=== PATIENT | female | born 1950 | race Two or more races ===

== ENCOUNTER 2017-02-04 19:57 | Inpatient (IN) | payer MEDICAID, OTHER ==
[~2017-02-04] VITALS: Ht 154.9 cm; Wt 97.5 kg
[2017-02-04] MEDS ORDERED: METFORMIN HCL1000 M1 ORAL (20:12)
[2017-02-04] MEDS ORDERED: ASPIR 8181 MG ORAL (20:12)
[2017-02-04] MEDS ORDERED: SINGULAIR10 MG ORAL (20:12)
[2017-02-04] MEDS ORDERED: LISINOPRIL5 MG ORAL (20:12)
[2017-02-04] MEDS ORDERED: LEVOTHYROXINE75 MCG ORAL (20:12)
[2017-02-04] MEDS ORDERED: Sodium Chloride 500ML 500 ML IV ONE (21:17)
[2017-02-04 21:30] VITALS: BP 151/72
[2017-02-04 21:39] LABS: BASOPHILS % (AUTO) 2.3 % (0.0-2.0); HEMATOCRIT 41.7 % (37.0-47.0); HEMOGLOBIN 11.6 G/DL (12.0-16.0); LYMPHOCYTES % (AUTO) 45.3 % (20.0-45.0); MEAN CORPUSCULAR VOLUME 80 FL (80-99); MONOCYTES % (AUTO) 7.1 % (1.0-10.0); NEUTROPHILS % (AUTO) 40.3 % (45.0-75.0); PLATELET COUNT 203 K/UL (150-450); RED CELL DISTRIBUTION WIDTH 14.7 % (11.6-14.8); WHITE BLOOD COUNT 6.3 K/UL (4.8-10.8)
[2017-02-04 21:59] LABS: ALANINE AMINOTRANSFERASE 18 U/L (12-78); ALBUMIN 3.7 G/DL (3.4-5.0); ALBUMIN/GLOBULIN RATIO 0.9 (1.0-2.7); ALKALINE PHOSPHATASE 56 U/L (46-116); ANION GAP 6 mmol/L (5-15); ASPARTATE AMINO TRANSFERASE 38 U/L (15-37); BILIRUBIN,TOTAL 0.4 MG/DL (0.2-1.0); BLOOD UREA NITROGEN 24 mg/dL (7-18); CALCIUM 7.9 MG/DL (8.5-10.1); CARBON DIOXIDE 27 MMOL/L (21-32); CHLORIDE 107 MMOL/L (98-107); CREATINE KINASE 142 U/L (26-308); CREATININE 0.7 MG/DL (0.55-1.30); SODIUM 139 MMOL/L (136-145)
[2017-02-04 22:05] LABS: POTASSIUM 4.9 MMOL/L (3.5-5.1)
--- NOTE | 2017-02-04 22:36 | Emergency Room Report ---
History of Present Illness General Chief Complaint: Generalized Weakness Source: Patient (MATTHEW MORROW M.D.) Present Illness HPI 66-year-old female presents to ED for evaluation. States the last 3 days she's been having weakness on the left side of her body feels numb in sensation to her tongue into her face. Feels numbing sensation in her left upper extremity. Denies any slurred speech or facial droop. Denies any chest pain or shortness of breath. No other aggravating or relieving factors. Denies any other associated symptoms (MATTHEW MORROW M.D.) Allergies: Coded Allergies: PENICILLINS (Verified Allergy, Unknown, 02/04/17) Uncoded Allergies: IV CONTRAST (Allergy, Unknown, 02/04/17) Patient History Past Medical History: DM, HTN Past Surgical History: none Pertinent Family History: none Social History: Denies: smoking, alcohol use, drug use Last Menstrual Period: n/a Now: No Immunizations: UTD Reviewed Nursing Documentation: PMH: Agreed, PSxH: Agreed (MATTHEW MORRWO M.D.) Nursing Documentation-PMH Past Medical History: No History, Except For Hx Cardiac Problems: Yes - arrhythmia, high cholestrol, hypothyroidism, anemia Hx Hypertension: Yes Hx Diabetes: Yes (MATTHEW MORROW M.D.) Review of Systems All Other Systems: negative except mentioned in HPI (MATTHEW MORROW M.D.) Physical Exam Vital Signs Date Time Temp Pulse Resp B/P (MAP) Pulse Ox O2 Delivery O2 Flow Rate FiO2 02/04/17 20:05 97.7 92 16 147/74 97 Room Air Sp02 EP Interpretation: reviewed, normal General Appearance: no apparent distress, alert, GCS 15, non-toxic Head: normocephalic, atraumatic Eyes: bilateral eye normal inspection, bilateral eye PERRL ENT: hearing grossly normal, normal pharynx, no angioedema, normal voice Neck: full range of motion, supple/symm/no masses Respiratory: chest non-tender, lungs clear, normal breath sounds, speaking full sentences Cardiovascular #1: regular rate, rhythm, no edema Cardiovascular #2: 2+ carotid (R), 2+ carotid (L), 2+ radial (R), 2+ radial (L) , 2+ dorsalis pedis (R), 2+ dorsalis pedis (L) Gastrointestinal: normal bowel sounds, non tender, soft, non-distended, no guarding, no rebound Rectal: deferred Genitourinary: normal inspection, no CVA tenderness Musculoskeletal: back normal, gait/station normal, normal range of motion, non- tender Neurologic: alert, oriented x3, responsive, an employee sponsor or advocate and III-XII nml as tested, motor strength/tone normal, sensory intact, speech normal Psychiatric: judgement/insight normal, memory normal, mood/affect normal, no suicidal/homicidal ideation Reflexes: 3+ bicep (R), 3+ bicep (L), 3+ tricep (R), 3+ tricep (L), 3+ knee (R) , 3+ knee (L) Skin: normal color, no rash, warm/dry, well hydrated Lymphatic: no adenopathy (MATTHEW MORROW M.D.) Medical Decision Making Labs Test 02/04/17 21:26 White Blood Count 6.3 K/UL (4.8-10.8) Red Blood Count 5.20 M/UL (4.20-5.40) Hemoglobin 11.6 G/DL (12.0-16.0) Hematocrit 41.7 % (37.0-47.0) Mean Corpuscular Volume 80 FL (80-99) Mean Corpuscular Hemoglobin 22.2 PG (27.0-31.0) Mean Corpuscular Hemoglobin Concent 27.7 G/DL (32.0-36.0) Red Cell Distribution Width 14.7 % (11.6-14.8) Platelet Count 203 K/UL (150-450) Mean Platelet Volume 12.3 FL (6.5-10.1) Neutrophils (%) (Auto) 40.3 % (45.0-75.0) Lymphocytes (%) (Auto) 45.3 % (20.0-45.0) Monocytes (%) (Auto) 7.1 % (1.0-10.0) Eosinophils (%) (Auto) 5.0 % (0.0-3.0) Basophils (%) (Auto) 2.3 % (0.0-2.0) Sodium Level 139 MMOL/L (136-145) Potassium Level 4.9 MMOL/L (3.5-5.1) Chloride Level 107 MMOL/L (98-107) Carbon Dioxide Level 27 MMOL/L (21-32) Anion Gap 6 mmol/L (5-15) Blood Urea Nitrogen 24 mg/dL (7-18) Creatinine 0.7 MG/DL (0.55-1.30) Estimat Glomerular Filtration Rate > 60 mL/min (>60) Glucose Level 145 MG/DL (74-106) Calcium Level 7.9 MG/DL (8.5-10.1) Total Bilirubin 0.4 MG/DL (0.2-1.0) Aspartate Amino Transf (AST/SGOT) 38 U/L (15-37) Alanine Aminotransferase (ALT/SGPT) 18 U/L (12-78) Alkaline Phosphatase 56 U/L (46-116) Total Creatine Kinase 142 U/L (26-308) Troponin I 0.013 ng/mL (0.000-0.056) Total Protein 7.7 G/DL (6.4-8.2) Albumin 3.7 G/DL (3.4-5.0) Globulin 4.0 g/dL Albumin/Globulin Ratio 0.9 (1.0-2.7) (MATTHEW MORROW M.D.) ER Course I received signout. 66-year-old female with 3 days of unsteady gait, paresthesias, CT head is negative, work up is negative, patient was approved to be admitted to observation unit. [facility] EKG Diagnostic Results Rate: normal Rhythm: NSR ST Segments: other - twave inversions in lateral leads (MATTHEW MORROW M.D.) Rhythm Strip Diag. Results EP Interpretation: yes Rhythm: NSR, no PVC's, no ectopy (MATTHEW MORROW M.D.) CT/MRI/US Diagnostic Results CT/MRI/US Diagnostic Results #1: Imaging Test Ordered: CT Head CT/MRI/US Diagnostic Results #2: Imaging Test Ordered: CT C spine (MATTHEW MORROW M.D.) Last Vital Signs Date Time Temp Pulse Resp B/P (MAP) Pulse Ox O2 Delivery O2 Flow Rate FiO2 02/04/17 21:30 97.7 74 20 151/72 98 Room Air (MATTHEW MORROW M.D.) Referrals: [facility] (PCP) MATTHEW MORROW M.D. Feb 04, 2017 22:36 Donya Ferris M.D. Feb 05, 2017 01:27
[2017-02-04 22:42] LABS: CKMB 0.7 NG/ML (0.0-3.6)
[2017-02-05 01:06] VITALS: BP 117/53
[2017-02-05 01:37] LABS: APPEARANCE,URINE CLEAR; BILIRUBIN, URINE NEGATIVE (NEGATIVE); COLOR,URINE PALE YELLOW; GLUCOSE, URINE (UA) NEGATIVE (NEGATIVE); KETONES,URINE NEGATIVE (NEGATIVE); NITRITE,URINE NEGATIVE (NEGATIVE); PH,URINE 7 (4.5-8.0); PROTEIN,URINE NEGATIVE (NEGATIVE); UROBILINOGEN,URINE NORMAL MG/DL (0.0-1.0)
[2017-02-05 01:39] LABS: LEUKOCYTE ESTERASE ,URINE NEGATIVE (NEGATIVE)
[2017-02-05 07:19] VITALS: BP 134/79
[2017-02-05 07:23] LABS: EOSINOPHILS % (AUTO) 4.7 % (0.0-3.0); HEMATOCRIT 35.2 % (37.0-47.0); HEMOGLOBIN 10.4 G/DL (12.0-16.0); LYMPHOCYTES % (AUTO) 37.8 % (20.0-45.0); MEAN CORPUSCULAR VOLUME 80 FL (80-99); MONOCYTES % (AUTO) 9.4 % (1.0-10.0); NEUTROPHILS % (AUTO) 46.1 % (45.0-75.0); PLATELET COUNT 161 K/UL (150-450); RED BLOOD COUNT 4.41 M/UL (4.20-5.40); RED CELL DISTRIBUTION WIDTH 14.9 % (11.6-14.8); WHITE BLOOD COUNT 4.9 K/UL (4.8-10.8)
[2017-02-05 07:48] LABS: ALANINE AMINOTRANSFERASE 17 U/L (12-78); ALKALINE PHOSPHATASE 47 U/L (46-116); ANION GAP 4 mmol/L (5-15); ASPARTATE AMINO TRANSFERASE 13 U/L (15-37); BILIRUBIN,TOTAL 0.2 MG/DL (0.2-1.0); BLOOD UREA NITROGEN 27 mg/dL (7-18); CARBON DIOXIDE 26 MMOL/L (21-32); CHLORIDE 112 MMOL/L (98-107); CREATININE 0.7 MG/DL (0.55-1.30); POTASSIUM 4.3 MMOL/L (3.5-5.1); SODIUM 142 MMOL/L (136-145)
--- NOTE | 2017-02-05 08:21 | History & Physical ---
History and Physical History & Physicial dict MRI neuro SARABJIT BANKS Feb 05, 2017 08:21
[2017-02-05] MEDS ORDERED: Lisinopril 10mg tab ORAL SCH (09:00)
[2017-02-05] MEDS ORDERED: Aspirin Baby 81mg ORAL SCH (09:00)
[2017-02-05] MEDS ORDERED: Montelukast 10mg tablet ORAL SCH (09:00)
--- NOTE | 2017-02-05 09:17 | Diagnostic Imaging Report ---
Indication: Neck pain. Technique: Continuous helical imaging of the cervical spine was obtained transaxially from the skull base to the upper thoracic spine. 2-D coronal and sagittal reformatted images were obtained. Automatic Exposure Control was utilized. Total Dose length Product (DLP): 381.[address] Dose Index Volume (CTDIvol): 17.77 mGy Comparison: None Findings: There is no evidence of an acute fracture or malalignment. Atlantoaxial alignment appears normal. Height and configuration of the vertebral bodies and intervertebral discs are largely within normal limits. Only exception at C5-6 which shows mild narrowing of the disc and minimal endplate spurring. Uncovertebral joints and facets are unremarkable. There is no soft tissue swelling. Impression: Negative for acute injury. Mild degenerative disc disease at C5-6. The CT scanner at [facility] is accredited by the [employer] and the scans are performed using dose optimization techniques as appropriate to a performed exam including Automatic Exposure control.
--- NOTE | 2017-02-05 09:52 | Diagnostic Imaging Report ---
Indication: Headache Technique: Contiguous 5 mm thick transaxial imaging of the head obtained in a Siemens Sensation [address] scanner. Soft tissue and bone windows generated. Automatic Exposure Control was utilized. Total Dose length Product (DLP): 1291.[address] Dose Index Volume (CTDIvol): 70.38 mGy Comparison: none Findings: There is mild prominence of the ventricles, basal cisterns, and cerebral sulci consistent with atrophy. Mild, nonspecific, white matter hypoattenuation is noted throughout the brain consistent with chronic small vessel disease. There is no midline shift, edema, acute hemorrhage, mass effect, or abnormal extra-axial fluid collections. Bones and extra osseous soft tissues are unremarkable. Mucosal thickening noted within some of the paranasal sinuses. Impression: No acute intracranial bleed, mass effect or edema. Mild atrophy of the brain. Nonspecific white matter hypoattenuation probably due to chronic small vessel disease. Sinusitis [facility] has communicated the preliminary results to the Emergency Department. Their findings are largely concordant with this report. The CT scanner at [facility] is accredited by the [employer] and the scans are performed using dose optimization techniques as appropriate to a performed exam including Automatic Exposure control.
--- NOTE | 2017-02-05 10:00 | Diagnostic Imaging Report ---
Indication: Left-sided weakness Technique: The head was imaged in a 1.5 Negin magnet. Sequences obtained include sagittal and axial T1 FLAIR, axial T2 fast spin echo with fat saturation, axial T2 FLAIR, diffusion and ADC map. Comparison: None Findings: The size, contour, and configuration of the sulci, ventricles, and basal cisterns appear slightly prominent but normal for age. Moreau-white differentiation is normal. Mild susceptibility associated with calcification in the left basal ganglia region noted. There is no restricted diffusion. There is no mass effect, midline shift, edema, or hemorrhage. There are no abnormal extra-axial or intra-axial fluid collections. The corpus callosum is unremarkable. The brainstem and cerebellum are unremarkable. The sella is unremarkable. Bone marrow signal within the visualized osseous structures appears age appropriate and unremarkable otherwise. There is fluid signal within the sphenoid sinus and some mucosal thickening of the ethmoid sinus. Impression: No evidence of acute CVA, mass effect, edema or acute hemorrhage. Sinusitis
--- NOTE | 2017-02-05 11:18 | Diagnostic Imaging Report ---
Indication: Dyspnea Comparison: None A single view chest radiograph was obtained. Findings: Cardiomediastinal appearance is within normal limits for age. Pulmonary vascularity is appropriate. The diaphragmatic contour is smooth and costophrenic angles are sharp. No pleural effusions are identified. The bones are unremarkable. Impression: No acute findings
[2017-02-05] MEDS: metFORMIN 500mg tab ORAL SCH ×2 (11:35→18:09)
--- NOTE | 2017-02-05 15:00 | History and Physical Report ---
DATE OF ADMISSION: 02/04/2017 HISTORY OF PRESENT ILLNESS: This 66-year-old woman comes to the emergency department because of several days to weeks of left-sided weakness and numbness. She complains that her tongue and face feel numb and she has weakness on the left side. She states that she fell down several times. She has fluent speech, but claims that her speech is not normal. She has no history of seizure or stroke. She has no chest pain or shortness of breath. PAST MEDICAL HISTORY: Hypertension, hyperlipidemia, hypothyroidism, diabetes, arrhythmia, and anemia. SURGICAL HISTORY: Uterine carcinoma 30 years ago, resected. Lumbar spine surgery three years ago. SOCIAL HISTORY: She does not drink or smoke. Does not use drugs. ALLERGIES: Penicillin and IV contrast. REVIEW OF SYSTEMS: Otherwise unremarkable except for overweight condition and diffuse abdominal discomfort and nausea. Her weight is stable. PHYSICAL EXAMINATION: GENERAL: The patient is alert and responds appropriately. She is obese. VITAL SIGNS: Blood pressures somewhat elevated at times. HEENT: Head is normocephalic. NECK: Has no jugular vein distention. CHEST: Clear. CARDIAC: Rhythm is regular. ABDOMEN: Soft and nontender. EXTREMITIES: No clubbing, cyanosis, or edema. NEUROLOGIC: She is able to move all extremities. There may be slight weakness on the left side. There is no obvious numbness to light touch. Cranial nerves are intact. She is alert and oriented. LABORATORY AND DIAGNOSTIC DATA: Laboratory studies show mild anemia. The blood sugar is 145. Renal function is normal. Urinalysis is negative. CT brain is negative by report of the emergency room physician, although I have not seen the final radiologist's report. IMPRESSION: 1. Left-sided weakness and numbness, possible stroke. 2. Diabetes. 3. Hypertension. 4. Mild anemia. 5. Hypothyroidism. PLAN: The patient will be admitted. Neurology consultation and MRI will be again requested. Neville Marcial M.D. DR: CON JOB#: [id number] CC: Neville Marcial M.D.; Fax#: [phone]
[2017-02-05] MEDS ORDERED: Norco 5mg/325mg tab ORAL PRN (19:15)
[2017-02-05] MEDS ORDERED: TraZODone 50mg tab ORAL PRN (19:15)
[2017-02-05 20:00] VITALS: BP 151/82
[2017-02-05] MEDS ORDERED: Flu Vaccine Quadrivalent 0.5ml IM ONE (21:00)
[2017-02-06 00:45] VITALS: BP 148/74
[2017-02-06 04:52] VITALS: BP 136/66
--- NOTE | 2017-02-10 11:13 | Discharge Summary ---
Discharge Summary Hospital Course Date of Admission Feb 05, 2017 at 00:05 Date of Discharge Feb 06, 2017 at 08:54 Admitting Diagnosis dizziness, unsteady gait, numbness HPI Veena Marion is a 66 year old female who was admitted on Feb 05, 2017 at 00: 05 for Dizziness, Unsteady Gait, Numbness Hospital Course dc summary #[id number] Discharge Discharge Disposition Patient signed AMA Discharge Diagnoses: Discharge Instructions Discharge Instructions Special Instructions I have been assigned to complete a D/C Summary on this account. I was not involved in the patient management Marcella Ramirez NP ([place]) Feb 10, 2017 11:13
--- NOTE | 2017-02-10 19:00 | Discharge Summary 2 SIG ---
DATE OF ADMISSION: 02/05/2017 DATE OF SIGNINGS AGAINST MEDICAL ADVICE: 02/06/2017. REASON FOR ADMISSION: 66-year-old female with past medical history significant for hypertension, hyperlipidemia, hypothyroidism, diabetes, anemia, and arrhythmia, presented to emergency department with complaint of the weakness on the left side of her body and numbness in sensation to her tongue and face which lasted for three days. The patient denied slurred speech. Denied facial droop. No chest pain. No shortness of breath. CT of the head done in the emergency room revealed no evidence of acute intracranial pathology. EKG showed normal sinus rhythm with T-wave inversion in lateral leads. Troponin was negative. The patient with three days of unsteady gait, paresthesia was admitted for left-sided weakness and numbness, rule out stroke, diabetes, hypertension, mild anemia, and hypothyroidism. HOSPITAL COURSE: The patient was admitted. Neurology consultation was requested. The patient subsequently undergone CT of the C-spine, which was negative for acute injury, but showed mild degenerative disk disease at C5-C6. Chest x-ray revealed no evidence of acute cardiopulmonary pathology. Carotid duplex was essentially negative. Echocardiogram was stable. Brain MRI was subsequently done and revealed no evidence of acute CVA, mass effect, edema, or acute hemorrhage. TSH was within normal limits. Current dose of levothyroxine was continued. Hemoglobin A1c at goal -6.7. Management of blood sugar was continued with metformin. The patient was started on aspirin. The patient decided to go against medical advice stating that her symptoms nearly resolved. On physical examination with primary doctor, there was no obvious numbness to light touch. The patient was able to move all extremities and there was felt slight weakness on the left. However, the patient reported feeling better .She was informed that all her tests were negative. Patient decided to sign against medical advice before doctor can discharge her. The patient had mild anemia on admission, hemoglobin -11.6 and hematocrit- 41.7, next day- 10.4 and- 35.2 with IV hydration. No signs of bleeding. Urinalysis with no evidence of hematuria. The patient to follow up with the workup for anemia with the primary medical doctor. The risks and consequences of signing against medical advice were discussed with the patient , and the patient verbalized understanding. Nevertheless, she signed the AMA form and left. FINAL DIAGNOSES: 1. Left-sided weakness and numbness, resolved. 2. Diabetes. 3. Hypertension. 4. Hypothyroidism. 5. Mild anemia. Neville Marcial M.D. I have been assigned to dictate discharge summary on this account and I was not involved in the patient's management. Marcella SantoroBurke Rehabilitation HospitalLarry NDarinPDarin DR: BENJAMÍN JOB#: [id number] CC: PINKY
--- NOTE | 2017-02-11 13:12 | Diagnostic Imaging Report ---
APPROVED REPORT CPT Code: 28277 Vascular Symptoms Dizziness and Vertigo CAROTID (BILATERAL) - Imaging reveals no significant plaque within the right and left extracranial carotid arteries. The Doppler spectral flow analysis is within normal limits throughout the extracranial carotid arteries bilaterally. VERTEBRAL- The vertebral arteries are within normal limits.
--- NOTE | 2017-02-15 21:47 | Cardiology Report ---
APPROVED REPORT EXAM: Two-dimensional and M-mode echocardiogram with Doppler and color Doppler. INDICATION Congestive Heart Failure M-Mode DIMENSIONS IVSd1.5 (0.7-1.1cm)Left Atrium (MM)4.5 (1.6-4.0cm) LVDd5.8 (3.5-5.6cm)Aortic Root3.6 (2.0-3.7cm) PWd1.3 (0.7-1.1cm)Aortic Cusp Exc.1.7 (1.5-2.0cm) IVSs2.1 cm LVDs4.1 (2.5-4.0cm) PWs1.6 cm Normal left ventricular chamber size, systolic function and wall motion. Left ventricular ejection fraction estimated to be 60-65%. No evidence of left ventricular hypertrophy. No evidence of pericardial effusion. Mild left atrial dilated . Focal aortic valve sclerosis with adequate cusp excursion. Thickened mitral valve leaflets with normal excursion. Mitral annulus and aortic root calcification. Pulmonic valve not well visualized. Normal tricuspid valve structure. IVC at 2.3size with physiologic collapse. A color flow and spectral Doppler study was performed and revealed: Trace aortic regurgitation. Mild to moderate mitral regurgitation. Mitral inflow Mitral diastolic velocities suggest reduced left ventricular relaxation c/w mild LV diastolic dysfunction (Grade I ). mild tricuspid regurgitation. Tricuspid systolic velocities suggests peak right ventricular systolic pressure of 47 mmHg consistent with mild pulmonary hypertension. Mild Pulmonic regurgitation present.
--- NOTE | 2017-02-16 00:10 | Cardiology Report ---
APPROVED REPORT EKG Measurement Heart [id number] Normal sinus rhythm T wave abnormality, consider inferolateral ischemia Abnormal ECG
== END 2017-02-06 08:54 | disposition left against medical advice (07) | DRG 58 ==
LOC: EMR 20:50 → 2E 02-05 00:05 → EDBEDREQ 02-05 14:45 → 2E 02-05 16:15
DX: R20.2 Paresthesia of skin (principal); I10 Essential (primary) hypertension; E03.9 Hypothyroidism, unspecified; E11.9 Type 2 diabetes mellitus without complications; D64.9 Anemia, unspecified; E78.5 Hyperlipidemia, unspecified; R53.1 Weakness; R26.81 Unsteadiness on feet; Z23 Encounter for immunization; Z53.21 Procedure and treatment not carried out due to patient leaving prior to being seen by health care provider; Z85.42 Personal history of malignant neoplasm of other parts of uterus; Z79.84 Long term (current) use of oral hypoglycemic drugs
CPT/HCPCS: 36415; 70450; 70551; 71010; 72125; 80053; 81001; 82550; 82553; 82962; 83036; 84443; 84484; 85025; 90630; 93005; 93306; 93880; 99285

== ENCOUNTER 2019-01-28 09:46 | Inpatient (IN) | payer MEDICARE, MEDICAID ==
[2019-01-28] VITALS (8 sets, daily range): BP systolic 104–141; BP diastolic 50–86
[~2019-01-28] VITALS: Ht 162.6 cm; Wt 113.9 kg
[~2019-01-28 09:46] MED LIST: ASPIR 8181 MG ORAL; LEVOTHYROXINE75 MCG ORAL; LISINOPRIL5 MG ORAL; METFORMIN HCL1000 M1 ORAL; SINGULAIR10 MG ORAL
--- NOTE | 2019-01-28 09:59 | NUR ---
ED Nurse Note: Pt wheeled into ED in a wheelchair from home. Pt reports fever, chills, body aches, n/v for one week. Pt reports she came in due to feeling weak and dizzy. Pt has a hx of sleep apnea and reports using a CPAP at home. Pts blood sugar on arrival was 193. Pt confirms that she as a hx of diabetes. Pt in bed resting.
[2019-01-28] MEDS ORDERED: Sodium Chloride 3,400 ML IVLG ONE (10:15)
--- NOTE | 2019-01-28 10:16 | Emergency Room Report ---
History of Present Illness General Chief Complaint: Fever Source: Patient Present Illness HPI 68-year-old female with history of diabetes, hypertension, thyroid disorder presents with fever and cough for 3 days duration. She reports cough as productive, yellow sputum. She tried NyQuil last today with no improvement. Patient did not take any antipyretics prior to arrival. She did not get influenza vaccination this year Allergies: Coded Allergies: PENICILLINS (Verified Allergy, Unknown, 02/04/17) Uncoded Allergies: CONTRAST (Allergy, Unknown, 01/28/19) Nursing Documentation-[facility] Past Medical History: No History, Except For Hx Cardiac Problems: Yes Hx Hypertension: Yes Hx Asthma: Yes Hx Diabetes: Yes Hx Cancer: Yes - ovary ca 1982 Hx Gastrointestinal Problems: Yes - nausea Hx Neurological Problems: No Review of Systems Constitutional: Reports: fever; Denies: chills Respiratory: Reports: cough; Denies: shortness of breath Cardiovascular: Denies: chest pain, palpitations Gastrointestinal: Denies: diarrhea, vomiting Genitourinary: Denies: hematuria, pain Musculoskeletal: Denies: joint swelling Skin: Denies: rash, lesions Neurological: Denies: headache, dizziness Physical Exam Vital Signs Date Time Temp Pulse Resp B/P (MAP) Pulse Ox O2 Delivery O2 Flow Rate FiO2 01/28/19 09:49 102.4 120 26 163/79 (107) 94 Room Air Sp02 EP Interpretation: reviewed General Appearance: well appearing, no apparent distress, non-toxic Head: normocephalic, atraumatic Eyes: bilateral eye normal inspection ENT: hearing grossly normal, EOM grossly intact, moist mucus membranes Neck: supple Respiratory: lungs clear, normal breath sounds, no respiratory distress, speaking full sentences Cardiovascular #1: regular rate, rhythm, normal capillary refill Cardiovascular #2: 2+ radial (R), 2+ radial (L) Gastrointestinal: soft, non-distended Rectal: deferred Musculoskeletal: moves extm spontaneously, no lower extremity edema Neurologic: grossly normal Psychiatric: mood/affect normal Skin: warm/dry, normal turgor Medical Decision Making Diagnostic Impression: Primary Impression: Fever Additional Impressions: CAP (community acquired pneumonia) Pulmonary vascular congestion ER Course 68-year-old female presenting with fever and cough. Differential includes cough, pneumonia, viral infection, vascular congestion, acute myocardial infarction, sepsis, septic shock We will perform lab testing and chest x-ray to evaluate patient's fever Laboratory Tests Test 01/28/19 10:22 White Blood Count 17.1 K/UL (4.8-10.8) H Red Blood Count 5.68 M/UL (4.20-5.40) H Hemoglobin 13.2 G/DL (12.0-16.0) Hematocrit 44.0 % (37.0-47.0) Mean Corpuscular Volume 77 FL (80-99) L Mean Corpuscular Hemoglobin 23.2 PG (27.0-31.0) L Mean Corpuscular Hemoglobin Concent 29.9 G/DL (32.0-36.0) L Red Cell Distribution Width 16.4 % (11.6-14.8) H Platelet Count 162 K/UL (150-450) Mean Platelet Volume 11.2 FL (6.5-10.1) H Neutrophils (%) (Auto) % (45.0-75.0) Lymphocytes (%) (Auto) % (20.0-45.0) Monocytes (%) (Auto) % (1.0-10.0) Eosinophils (%) (Auto) % (0.0-3.0) Basophils (%) (Auto) % (0.0-2.0) Differential Total Cells Counted 100 Neutrophils % (Manual) 93 % (45-75) H Lymphocytes % (Manual) 4 % (20-45) L Monocytes % (Manual) 2 % (1-10) Eosinophils % (Manual) 1 % (0-3) Basophils % (Manual) 0 % (0-2) Band Neutrophils 0 % (0-8) Platelet Estimate Adequate Platelet Morphology Normal Anisocytosis 1+ Microcytosis 1+ Urine Color Pale yellow Urine Appearance Clear Urine pH 8 (4.5-8.0) Urine Specific [place] 1.010 (1.005-1.035) Urine Protein Negative (NEGATIVE) Urine Glucose (UA) 4+ (NEGATIVE) H Urine Ketones Negative (NEGATIVE) Urine Blood Negative (NEGATIVE) Urine Nitrite Negative (NEGATIVE) Urine Bilirubin Negative (NEGATIVE) Urine Urobilinogen Normal MG/DL (0.0-1.0) Urine Leukocyte Esterase Negative (NEGATIVE) Sodium Level 139 MMOL/L (136-145) Potassium Level 4.6 MMOL/L (3.5-5.1) Chloride Level 105 MMOL/L (98-107) Carbon Dioxide Level 23 MMOL/L (21-32) Anion Gap 11 mmol/L (5-15) Blood Urea Nitrogen 26 mg/dL (7-18) H Creatinine 1.1 MG/DL (0.55-1.30) Estimate Glomerular Filtration Rate 49.7 mL/min (>60) Glucose Level 163 MG/DL (74-106) H Lactic Acid Level 1.70 mmol/L (0.4-2.0) Calcium Level 8.9 MG/DL (8.5-10.1) Total Bilirubin 0.4 MG/DL (0.2-1.0) Aspartate Amino Transferase (AST) 14 U/L (15-37) L Alanine Aminotransferase (ALT) 17 U/L (12-78) Alkaline Phosphatase 54 U/L (46-116) Total Creatine Kinase 62 U/L (26-308) Creatine Kinase MB 0.5 NG/ML (0.0-3.6) Creatine Kinase MB Relative Index 0.8 Troponin I 0.020 ng/mL (0.000-0.056) Pro-B-Type Natriuretic Peptide 317 pg/mL (0-125) H Total Protein 7.4 G/DL (6.4-8.2) Albumin 3.7 G/DL (3.4-5.0) Globulin 3.7 g/dL Albumin/Globulin Ratio 1.0 (1.0-2.7) Microbiology Date/Time Source Procedure Growth Status 01/28/19 11:00 Nasal Nares - Final Complete 01/28/19 11:00 Nasal Nares - Final Complete Lab Results Impression Elevated WBC, elevated BUN Chest X-Ray Diagnostic Results Chest X-Ray Diagnostic Results : Chest X-Ray Ordered: Yes # of Views/Limited/Complete: 1 View Indication: Shortness of Breath PA Xray: Interpretation reviewed Interpretation: other - Increased vascular markings concerning for vascular congestion versus infectious, left basilar opacity concerning for atelectasis versus pneumonia Last Vital Signs Date Time Temp Pulse Resp B/P (MAP) Pulse Ox O2 Delivery O2 Flow Rate FiO2 01/28/19 09:49 102.4 120 26 163/79 (107) 94 Room Air Reevaluation Impression Patient found to have pneumonia versus vascular congestion on chest x-ray. Given elevated WBC count and fever will cover broad-spectrum antibiotics for community-acquired pneumonia. Case discussed with Dr. Gayle. Patient admitted Disposition: ADMITTED INPATIENT Sepsis Event Note Evaluation Current Stage of Sepsis: Sepsis Possible Source: Pulmonary Focused Exam Allergies: Coded Allergies: PENICILLINS (Verified Allergy, Unknown, 02/04/17) Uncoded Allergies: CONTRAST (Allergy, Unknown, 01/28/19) Date Exam Occurred: Jan 28, 2019 Time Exam Occurred: 01:00 Laboratory Studies Laboratory Tests Test 01/28/19 10:22 White Blood Count 17.1 K/UL (4.8-10.8) H Red Blood Count 5.68 M/UL (4.20-5.40) H Hemoglobin 13.2 G/DL (12.0-16.0) Hematocrit 44.0 % (37.0-47.0) Mean Corpuscular Volume 77 FL (80-99) L Mean Corpuscular Hemoglobin 23.2 PG (27.0-31.0) L Mean Corpuscular Hemoglobin Concent 29.9 G/DL (32.0-36.0) L Red Cell Distribution Width 16.4 % (11.6-14.8) H Platelet Count 162 K/UL (150-450) Mean Platelet Volume 11.2 FL (6.5-10.1) H Neutrophils (%) (Auto) % (45.0-75.0) Lymphocytes (%) (Auto) % (20.0-45.0) Monocytes (%) (Auto) % (1.0-10.0) Eosinophils (%) (Auto) % (0.0-3.0) Basophils (%) (Auto) % (0.0-2.0) Differential Total Cells Counted 100 Neutrophils % (Manual) 93 % (45-75) H Lymphocytes % (Manual) 4 % (20-45) L Monocytes % (Manual) 2 % (1-10) Eosinophils % (Manual) 1 % (0-3) Basophils % (Manual) 0 % (0-2) Band Neutrophils 0 % (0-8) Platelet Estimate Adequate Platelet Morphology Normal Anisocytosis 1+ Microcytosis 1+ Urine Color Pale yellow Urine Appearance Clear Urine pH 8 (4.5-8.0) Urine Specific [place] 1.010 (1.005-1.035) Urine Protein Negative (NEGATIVE) Urine Glucose (UA) 4+ (NEGATIVE) H Urine Ketones Negative (NEGATIVE) Urine Blood Negative (NEGATIVE) Urine Nitrite Negative (NEGATIVE) Urine Bilirubin Negative (NEGATIVE) Urine Urobilinogen Normal MG/DL (0.0-1.0) Urine Leukocyte Esterase Negative (NEGATIVE) Sodium Level 139 MMOL/L (136-145) Potassium Level 4.6 MMOL/L (3.5-5.1) Chloride Level 105 MMOL/L (98-107) Carbon Dioxide Level 23 MMOL/L (21-32) Anion Gap 11 mmol/L (5-15) Blood Urea Nitrogen 26 mg/dL (7-18) H Creatinine 1.1 MG/DL (0.55-1.30) Estimat Glomerular Filtration Rate 49.7 mL/min (>60) Glucose Level 163 MG/DL (74-106) H Lactic Acid Level 1.70 mmol/L (0.4-2.0) Calcium Level 8.9 MG/DL (8.5-10.1) Total Bilirubin 0.4 MG/DL (0.2-1.0) Aspartate Amino Transf (AST/SGOT) 14 U/L (15-37) L Alanine Aminotransferase (ALT/SGPT) 17 U/L (12-78) Alkaline Phosphatase 54 U/L (46-116) Total Creatine Kinase 62 U/L (26-308) Creatine Kinase MB 0.5 NG/ML (0.0-3.6) Creatine Kinase MB Relative Index 0.8 Troponin I 0.020 ng/mL (0.000-0.056) Pro-B-Type Natriuretic Peptide 317 pg/mL (0-125) H Total Protein 7.4 G/DL (6.4-8.2) Albumin 3.7 G/DL (3.4-5.0) Globulin 3.7 g/dL Albumin/Globulin Ratio 1.0 (1.0-2.7) Vital Signs Last 24 Hour Vital Signs Date Time Temp Pulse Resp B/P (MAP) Pulse Ox O2 Delivery O2 Flow Rate FiO2 01/28/19 11:27 101.3 107 28 137/67 95 Room Air 01/28/19 11:14 101.3 01/28/19 09:59 119 27 Room Air 01/28/19 09:59 102.3 119 27 132/86 94 Room Air 01/28/19 09:49 102.4 120 26 163/79 (107) 94 Room Air Respiratory Exam: No Rales Cardiovascular Exam: RRR, S1, S2 Capillary Refill: Less Than 2 Seconds Peripheral Pulse: Strong Pulse Location: Radial Skin Exam: Normal Anthony Colvin M.D. Jan 28, 2019 10:16
[2019-01-28] MEDS ORDERED: Acetaminophen 500mg (ES) tab ORAL ONE (10:30)
--- NOTE | 2019-01-28 10:30 | NUR ---
ED Nurse Note: xray at bedside
[2019-01-28 10:56] LABS: APPEARANCE,URINE CLEAR; BILIRUBIN, URINE NEGATIVE (NEGATIVE); COLOR,URINE PALE YELLOW; GLUCOSE, URINE (UA) 4+ (NEGATIVE); HEMOGLOBIN 13.2 G/DL (12.0-16.0); KETONES,URINE NEGATIVE (NEGATIVE); LEUKOCYTE ESTERASE ,URINE NEGATIVE (NEGATIVE); MEAN CORPUSCULAR VOLUME 77 FL (80-99); NITRITE,URINE NEGATIVE (NEGATIVE); PH,URINE 8 (4.5-8.0); PLATELET COUNT 162 K/UL (150-450); PROTEIN,URINE NEGATIVE (NEGATIVE); RED BLOOD COUNT 5.68 M/UL (4.20-5.40); RED CELL DISTRIBUTION WIDTH 16.4 % (11.6-14.8); UROBILINOGEN,URINE NORMAL MG/DL (0.0-1.0); WHITE BLOOD COUNT 17.1 K/UL (4.8-10.8)
[2019-01-28 11:10] LABS: ANION GAP 11 mmol/L (5-15); BLOOD UREA NITROGEN 26 mg/dL (7-18); CALCIUM 8.9 MG/DL (8.5-10.1); CARBON DIOXIDE 23 MMOL/L (21-32); CHLORIDE 105 MMOL/L (98-107); CREATININE 1.1 MG/DL (0.55-1.30); POTASSIUM 4.6 MMOL/L (3.5-5.1); SODIUM 139 MMOL/L (136-145)
[2019-01-28 11:25] LABS: ALANINE AMINOTRANSFERASE 17 U/L (12-78); ALBUMIN 3.7 G/DL (3.4-5.0); ALKALINE PHOSPHATASE 54 U/L (46-116); ASPARTATE AMINO TRANSFERASE 14 U/L (15-37); BILIRUBIN,TOTAL 0.4 MG/DL (0.2-1.0); CKMB 0.5 NG/ML (0.0-3.6); CREATINE KINASE 62 U/L (26-308)
--- NOTE | 2019-01-28 11:30 | NUR ---
ED Nurse Note: Pt resting in bed in stable condition. Medications and IV fluids have been administered.
--- NOTE | 2019-01-28 11:44 | Diagnostic Imaging Report ---
EXAM: XR Chest, 1 View CLINICAL HISTORY: COUGH TECHNIQUE: Frontal view of the chest. COMPARISON: None FINDINGS: Hardware: None. Lungs/pleura: Low lung volumes. Prominent lung markings may represent crowding of bronchovascular markings versus pulmonary vasculature congestion/edema versus infectious/inflammatory process. Left basilar opacity may represent atelectasis versus pneumonia. No pleural effusion or pneumothorax. Heart/mediastinum: Borderline size of the cardiac silhouette which may be accentuated by low lung volumes. Soft tissues: Unremarkable. Bones: No acute fracture. Degenerative changes of the acromioclavicular joints and spine. Upper abdomen: Normal. IMPRESSION: Prominent lung markings may represent crowding of bronchovascular markings versus pulmonary vasculature congestion/edema versus infectious/inflammatory process. Left basilar opacity may represent atelectasis versus pneumonia.
[2019-01-28] MEDS ORDERED: Azithromycin 500 MG in NS 275 ML IV ONE (12:00)
[2019-01-28] MEDS ORDERED: cefTRIAXone 1 GM in NS 55 ML IV SCH (12:00)
--- NOTE | 2019-01-28 13:17 | NUR ---
ED Nurse Note: Patient complaining of severe headache 11/17. ERMD made aware.
--- NOTE | 2019-01-28 15:10 | NUR ---
ED Nurse Note: Pt transferred to Tele room 218-2, report given to FAROOQ Whatley.
--- NOTE | 2019-01-28 15:30 | NUR ---
NURSE NOTES: Received report from FAROOQ Ashby @ ER. The patient's belongings checked with the patient and two nurses and signed by two nurse. Medication reconciliation and EKG obtained from ER. Medical, surgical, allergy, and social history taken by the nurse from the patient and daughter at the bedside. The patient came in with diagnosis of pneumonia with fever, shortness of breath, tachycardia, and generalized weakness. The patient's skin is intact. The patient's IV is intact and patent. The patient does not have POLST or advanced directive. Per patient's daughter, she is DPOA and will bring the documentation. Notified Dr. Gayle regarding admission, vital signs, and the patient's current medical condition. Will wait for Dr. Gayle's admission order. Will continue plan of care. Addendum: 01/28/19 at 1620 by Julito Cai RN The patient is stable without acute distress or shortness of breath. The patient's bed in the lowest position, call light in reach, and fall and aspiration precaution reinforced. IV site intact and patent. Will continue plan of care.
--- NOTE | 2019-01-28 16:15 | NUR ---
NURSE NOTES: Obtained admission order from Dr. Gayle. Will carry out as soon as possible. The patient is stable without acute distress or shortness of breath. Will continue plan of care.
[2019-01-28] MEDS ORDERED: Azithromycin 250mg tab ORAL SCH (17:00)
[2019-01-28] MEDS ORDERED: metFORMIN 500mg tab ORAL SCH (18:00)
--- NOTE | 2019-01-28 18:00 | NUR ---
NURSE NOTES: The patient is stable without acute distress or shortness of breath. Will continue plan of care.
--- NOTE | 2019-01-28 18:15 | History and Physical Report ---
DATE OF ADMISSION: 01/28/2019 CHIEF COMPLAINT/REASON FOR HOSPITALIZATION: The patient is admitted with fever, cough productive, likely pneumonia. HISTORY OF PRESENT ILLNESS: The patient is a 68-year-old lady with a history of asthma, diabetes, hypertension, hypothyroidism on replacement, history of arrhythmias, obesity, lumbar disc disease, and gait disorder. She presents with fever and cough for about three or four days. X-ray shows a possible left-sided infiltrate and possible mild CHF. ALLERGIES: Penicillin and contrast dye, which causes itching. HABITS: She is a nondrinker and nonsmoker. No use of illicit drugs. MEDICATIONS: Home medications are listed including donepezil 5 mg daily, Meloxicam 15 mg daily, gabapentin 800 mg twice a day, trazodone 150 mg daily, Actos 15 mg daily, verapamil ER 240 mg daily, metformin one tablet two times a day the dose is not clear, simvastatin 80 mg daily, lisinopril 20 mg daily, Topamax 100 mg twice a day, pentoxifylline 400 mg three times a day, meclizine 12.5 mg three times a day, Synthroid 100 mcg daily, and Jardiance 25 mg daily. PAST SURGICAL HISTORY: Include spine surgery in low back in 2013 and cervical cancer many years ago. I believe she has had aspiration of thyroid cyst. SYSTEM REVIEW: HEAD, EYES, EARS, NOSE, AND THROAT: Vision and hearing is good. ENDOCRINE: History of diabetes, obesity and hypothyroidism. History of aspiration of the thyroid in the past. PULMONARY: History of asthma. No known to TB. CARDIOVASCULAR: History of arrhythmias. She had apparently an ablation at [facility]. History of chest pain evaluated in the past with no definite ischemic heart disease. History of hypertension. GASTROINTESTINAL: History of gastroesophageal reflux disease. History of chronic diarrhea for quite some time and she has had several colonoscopies and detailed evaluation with no definite diagnosis. MUSCULOSKELETAL: History of severe arthritis in the knees and back pain, which limits her mobility. She is assisted transfer walk. CENTRAL NERVOUS SYSTEM: She was hospitalized at [facility] in the past for questionable CVA, but MRIs were negative. She has had recurrent falls in the past. No definite diagnosis of stroke. PHYSICAL EXAMINATION: GENERAL: The patient is alert, obese lady, seen in the emergency room, in no acute distress. BMI 43.1. VITAL SIGNS: Temperature 101.3, pulse 107, respirations 28, and blood pressure 137/67. O2 saturation 95% on room air. HEAD, EYES, EARS, NOSE, AND THROAT: Sclerae are nonicteric. Ocular motions intact in all directions. Oral mucosa is moist. NECK: I do not feel any adenopathy. LUNGS: Clear, but she has a harsh cough. HEART: Rhythm is regular. I hear no murmur. ABDOMEN: Obese and soft. No organomegaly. EXTREMITIES: Show trace edema. There are degenerative changes in the knees. BACK: Not examined in detail, which she is very difficult to move and needs assistance to roll from side to side. Gait is not tested. NEUROLOGIC: She is alert and oriented. Cranial nerves are intact. She moves all extremities. PERTINENT LABORATORY DATA: Show white count of 17.1, hemoglobin 13.2. Normal electrolytes. Glucose 163. Creatinine 1.1. Troponin 0.020. Lactic acid is 1.7. BNP 317. Urinalysis dipstick negative except for 4+ glucose. IMPRESSION: 1. Community-acquired pneumonia. 2. Possible mild congestive heart failure. 3. Hypertensive heart disease. 4. Adult onset diabetes. 5. Hypertension. 6. History of back injury. 7. History of gait disorder. 8. History of arrhythmia. 9. History of hypothyroidism. 10. History of gastroesophageal reflux disease. 11. History of chronic diarrhea. PLAN: We will put the patient on antibiotics for community-acquired pneumonia. Comfort measures. Try to mobilize her and continue her on breathing treatments in view of her history of asthma. Ismael Gayle M.D. DR: VENKAT JOB#: [id number] CC:
--- NOTE | 2019-01-28 19:15 | NUR ---
HAND-OFF: Report given to FAROOQ Ng. The patient is resting on the bed without acute distress or shortness of breath. The patient's bed in the lowest position, call light in reach, and fall and aspiration precaution reinforced. IV site intact and patent. Endorsed plan of care.
--- NOTE | 2019-01-28 19:30 | NUR ---
NURSE NOTES: Received report from FAROOQ Whatley. Pt is awake, lying semi-franco's; comfortably resting. No signs of acute distressed noted. Denies any pain at this time. Checked IV site; redness and swelling noted. D/c IV and will restart IV at a later time. AOx4; able to make needs known. No bleeding noted. Bed at lowest position. Brakes on. Siderails up x2. Call light within reach. Will continue to monitor.
[2019-01-28] MEDS: NovoLOG Insulin Flexpen SUBQ SCH (21:00)
[2019-01-28] MEDS: Heparin 5000 units/ml inj SUBQ SCH (22:32)
--- NOTE | 2019-01-28 23:50 | NUR ---
NURSE NOTES: Called Dr. Gayle regarding patient's request for inhaler, Prevacid, and Trazodone. Received new orders for Prevacid 30mg PO daily and Trazodone 50mg PO qhs. Noted and carried out.
[2019-01-28] MEDS: TraZODone 50mg tab ORAL SCH (23:59)
[2019-01-29] VITALS: BP 121/64
[2019-01-29 04:00] VITALS: BP 116/57
[2019-01-29] MEDS: NovoLOG Insulin Flexpen SUBQ SCH ×4 (05:38→21:38)
--- NOTE | 2019-01-29 07:35 | NUR ---
NURSE NOTES: Received bedside report from Mil TRIVEDI. Pt. in bed, sleeping but arousable. No sign of distress. No grimacing noted. IV at left FA #20g. in SL. Bed in low position, locked. Call light within reach. Will cont. to monitor.
[2019-01-29 08:00] VITALS: BP 115/50
[2019-01-29] MEDS: Azithromycin 250mg tab ORAL SCH (09:33)
[2019-01-29] MEDS: Montelukast 10mg tablet ORAL SCH (09:33)
[2019-01-29] MEDS: Lisinopril 10mg tab ORAL SCH (09:34)
[2019-01-29] MEDS: metFORMIN 500mg tab ORAL SCH ×2 (09:34→18:00)
[2019-01-29] MEDS: Heparin 5000 units/ml inj SUBQ SCH ×2 (09:40→21:00)
[2019-01-29 12:00] VITALS: BP 113/51
--- NOTE | 2019-01-29 15:46 | General Progress Note ---
Assessment/Plan Problem List: (1) Morbid (severe) obesity due to excess calories ICD Codes: E66.01 - Morbid (severe) obesity due to excess calories SNOMED: 411940780, 588198945 (2) Gait abnormality ICD Codes: R26.9 - Unspecified abnormalities of gait and mobility SNOMED: 10817753 (3) Lumbar disc disease ICD Codes: M51.9 - Unspecified thoracic, thoracolumbar and lumbosacral intervertebral disc disorder SNOMED: 184602364 (4) Diabetes ICD Codes: E11.9 - Type 2 diabetes mellitus without complications SNOMED: 74451540 (5) Pulmonary vascular congestion ICD Codes: R09.89 - Other specified symptoms and signs involving the circulatory and respiratory systems SNOMED: 758004608 (6) Fever ICD Codes: R50.9 - Fever, unspecified SNOMED: 312203203 (7) CAP (community acquired pneumonia) ICD Codes: J18.9 - Pneumonia, unspecified organism SNOMED: 615071917 (8) Asthma ICD Codes: J45.909 - Unspecified asthma, uncomplicated SNOMED: 562079337 Assessment/Plan: continue levaquin hhn comfort measures Subjective Constitutional: Reports: weakness HEENT: Reports: no symptoms Cardiovascular: Reports: no symptoms Respiratory: Reports: cough, shortness of breath, wheezing Gastrointestinal/Abdominal: Reports: no symptoms Genitourinary: Reports: incontinence Neurologic/Psychiatric: Reports: pre-existing deficit Endocrine: Reports: no symptoms Hematologic/Lymphatic: Reports: no symptoms Allergies: Coded Allergies: PENICILLINS (Verified Allergy, Unknown, 02/04/17) Uncoded Allergies: CONTRAST (Allergy, Unknown, 01/28/19) Objective Last 24 Hour Vital Signs Date Time Temp Pulse Resp B/P (MAP) Pulse Ox O2 Delivery O2 Flow Rate FiO2 01/29/19 12:00 97.9 82 20 113/51 (71) 97 01/29/19 11:41 87 01/29/19 09:34 115/50 01/29/19 09:00 Room Air 01/29/19 08:00 97.9 70 20 115/50 (71) 98 01/29/19 07:48 72 01/29/19 04:00 97.6 66 18 116/57 (76) 96 01/29/19 03:44 69 01/29/19 01:31 99.7 01/29/19 00:00 89 01/29/19 00:00 100.0 89 19 121/64 (83) 95 01/28/19 21:00 Room Air 01/28/19 20:00 79 01/28/19 20:00 99.7 88 18 104/50 (68) 96 01/28/19 18:33 Room Air 01/28/19 16:30 98.5 90 18 112/60 (77) 97 01/28/19 16:00 89 Intake and Output 01/28/19 01/29/19 19:00 07:00 Intake Total 1500 ml 240 ml Balance 1500 ml 240 ml Intake Oral 500 ml 240 ml IV Total 1000 ml # Voids 2 3 Laboratory Tests 01/29/19 05:50: Hemoglobin A1c 7.1H Height (Feet): 5 Height (Inches): 4.00 Weight (Pounds): 251 General Appearance: alert, obese EENT: normal ENT inspection Neck: normal alignment Cardiovascular: regular rhythm Respiratory/Chest: rhonchi - left Abdomen: non tender, soft Edema: trace edema Neurologic: press tender II-XII grossly normal, motor weakness Ismael Gayle MD Jan 29, 2019 15:46
[2019-01-29 16:00] VITALS: BP 119/66
--- NOTE | 2019-01-29 19:10 | NUR ---
NURSE NOTES: Received report from FAROOQ Mackey. Pt is awake, lying semi-franco's; resting comfortably. No signs of acute distress noted. Denies any pain at this time. AOx4; able to make needs known. Checked IV site, lines and rate; redness and puffiness noted. IV discontinued. IV Levaquin medication stopped. Bed at lowest position. Brakes on. Siderails up x2. Call light within reach. Will continue to monitor.
--- NOTE | 2019-01-29 19:28 | NUR ---
HAND-OFF: Report given to Mil TRIVEDI. Pt. remain stable.
--- NOTE | 2019-01-29 19:44 | NUR ---
NURSE NOTES: Called Dr. Gayle regarding patient noted twice to be having sensitivity to Levaquin IV medication as evidenced by redness and swelling noted around patient's IV site while Levaquin is running. Awaiting callback.
[2019-01-29 20:00] VITALS: BP 130/69
[2019-01-29] MEDS: TraZODone 50mg tab ORAL SCH ×2 (21:00→21:39)
[2019-01-29] MEDS: Albuterol/Ipratropium 3ml neb HHN SCH ×2 (21:13→23:45)
--- NOTE | 2019-01-29 21:34 | NUR ---
NURSE NOTES: Received order from Dr. Gayle to discontinue Levaquin IV medication. Noted and carried out.
--- NOTE | 2019-01-29 22:35 | NUR ---
NURSE NOTES: Notified Dr. Gayle that patient is requesting for an alternative IV antibiotic medication for her pneumonia since she is allergic to Levofloxacin/Levaquin. Received new order from Dr. Gayle for Doxycycline 100mg IV q12hr and to change it to PO form if patient is unable to tolerate IV form. Noted and carried out.
[2019-01-29] MEDS: Doxycycline Hyclate 100 MG in D5W 110 ML IV SCH (23:40)
--- NOTE | 2019-01-29 23:57 | NUR ---
NURSE NOTES: Called Dr. Gayle regarding patient and patient's daughter's request for patient to be transferred to [facility]. Awaiting callback.
[2019-01-30] VITALS: BP 121/68
--- NOTE | 2019-01-30 01:00 | NUR ---
NURSE NOTES: Called Dr. Gayle regarding patient and patient's daughter's request to be transferred to [facility] and that she wants her Protonix to be administered twice a day. Received callback from Dr. Gayle. No new orders at this time. Was told, "if the patient wants to stay, she can stay, but if she wants to leave, she can sign AMA because no one will be able to take her until 9 am."
[2019-01-30] MEDS ORDERED: TraZODone 50mg tab ORAL SCH (01:15)
--- NOTE | 2019-01-30 01:44 | NUR ---
NURSE NOTES: Called Dr. Gayle regarding patient's complaint of chest pain. Received callback from Dr. Gayle saying, "Give her Tylenol. She's just anxious and this is the last call you're going to make."
[2019-01-30] MEDS: Albuterol/Ipratropium 3ml neb HHN SCH ×4 (03:09→15:15)
[2019-01-30 04:00] VITALS: BP 105/86
--- NOTE | 2019-01-30 05:47 | NUR ---
NURSE NOTES: Notified Dr. Cline regarding patient converting to A-fib w/ RVR in the 150s. Awaiting callback. Addendum: 01/30/19 at 0550 by EV PRUITT RN RN Wrong patient.
[2019-01-30] MEDS: NovoLOG Insulin Flexpen SUBQ SCH ×3 (05:54→17:03)
[2019-01-30 06:59] LABS: BASOPHILS % (AUTO) 0.6 % (0.0-2.0); EOSINOPHILS % (AUTO) 0.7 % (0.0-3.0); HEMATOCRIT 37.7 % (37.0-47.0); HEMOGLOBIN 11.4 G/DL (12.0-16.0); MEAN CORPUSCULAR VOLUME 77 FL (80-99); MONOCYTES % (AUTO) 5.5 % (1.0-10.0); NEUTROPHILS % (AUTO) 78.2 % (45.0-75.0); PLATELET COUNT 145 K/UL (150-450); RED CELL DISTRIBUTION WIDTH 16.6 % (11.6-14.8); WHITE BLOOD COUNT 12.8 K/UL (4.8-10.8)
[2019-01-30 07:33] LABS: ALANINE AMINOTRANSFERASE 13 U/L (12-78); ALBUMIN 2.7 G/DL (3.4-5.0); ALBUMIN/GLOBULIN RATIO 0.7 (1.0-2.7); ALKALINE PHOSPHATASE 46 U/L (46-116); ANION GAP 9 mmol/L (5-15); ASPARTATE AMINO TRANSFERASE 10 U/L (15-37); BILIRUBIN,TOTAL 0.2 MG/DL (0.2-1.0); BLOOD UREA NITROGEN 29 mg/dL (7-18); CALCIUM 8.7 MG/DL (8.5-10.1); CARBON DIOXIDE 23 MMOL/L (21-32); CHLORIDE 109 MMOL/L (98-107); CREATININE 1.3 MG/DL (0.55-1.30); POTASSIUM 4.1 MMOL/L (3.5-5.1); SODIUM 141 MMOL/L (136-145)
--- NOTE | 2019-01-30 07:54 | NUR ---
HAND-OFF: Report given to FAROOQ Love. Patient is awake lying high-franco's eating breakfast. In stable condition.
[2019-01-30 08:00] VITALS: BP 133/55
--- NOTE | 2019-01-30 08:05 | NUR ---
NURSE NOTES: Patient stable, AOx4 eating breakfast. RR even and unlabored. Side rails up x2, call light within reach, bed low and locked. Will continue to monitor.
[2019-01-30] MEDS: Doxycycline Hyclate 100 MG in D5W 110 ML IV SCH (09:25)
[2019-01-30] MEDS: Lisinopril 10mg tab ORAL SCH (09:26)
[2019-01-30] MEDS: Montelukast 10mg tablet ORAL SCH (09:26)
[2019-01-30] MEDS: metFORMIN 500mg tab ORAL SCH ×2 (09:26→17:05)
[2019-01-30] MEDS: Azithromycin 250mg tab ORAL SCH (09:27)
[2019-01-30] MEDS: Heparin 5000 units/ml inj SUBQ SCH (09:36)
[2019-01-30 12:00] VITALS: BP 136/74
[2019-01-30] MEDS ORDERED: Tubing IV Secondary IV ONE (14:07)
[2019-01-30] MEDS ORDERED: NS 275ml ONE (14:07)
[2019-01-30 15:36] VITALS: BP 143/78
--- NOTE | 2019-01-30 15:37 | NUR ---
CASE MANAGEMENT: INITIAL REVIEW 68Y OLD FEMALE FROM HOME CC: FEVER SI: PNA . PULMONARY VASCULAR CONGESTION . FEVER 102.3 120 26 163/79 94% ON RA WBC 17.1 RBC 5.68 UN 26 BG 163 BNP 317 IS: IV NS BOLUS X3.5 IV ZITHROMAX X1 IV ROCEPHIN X1 TYLENOL PO X1 \: 2E TELE UNIT DCP: HOME WHEN MEDICALLY STABLE CASE MANAGEMENT: REVIEW 01/29/19 SI: PNA . PULMONARY VASCULAR CONGESTION . FEVER 99.0 80 20 119/66 96% ON 2L NC IS: IV DOXYCYCLINE BID LEVOFLOXACIN Q24 ZITHROMAX PO QD ALBUTEROL HHN Q4HR HEPARIN SQ BID NOVOLOG SQ AC&HS METFORMIN PO BID LISINOPRIL PO QD PROTONIX PO QS \: 2E TELE UNIT DCP: HOME WHEN MEDICALLY STABLE CASE MANAGEMENT: REVIEW 01/30/19 SI: PNA . PULMONARY VASCULAR CONGESTION . ASTHMA 98.1 86 20 105/86 94\% ON 2L NC WBC 12.8 BUN 29 BG 134 IS: IV DOXYCYCLINE BID ZITHROMAX PO QD ALBUTEROL HHN Q4HR HEPARIN SQ BID NOVOLOG SQ AC&HS METFORMIN PO BID LISINOPRIL PO QD PROTONIX PO QS \: 2E TELE UNIT DCP: HOME WHEN MEDICALLY STABLE
[2019-01-30] MEDS ORDERED: DOXYCYCLINE MO100 M2 PO (17:34)
--- NOTE | 2019-01-30 18:45 | Discharge Summary ---
DATE OF ADMISSION: 01/28/2019 DATE OF DISCHARGE: 01/30/2019 PERTINENT HISTORY: The patient admitted with fever and cough. There is a history of asthma, diabetes, hypertension, hypothyroidism, on replacement, lumbar disc disease, and gait disorder. PERTINENT PHYSICAL FINDINGS: See my dictated History and Physical for full details. HEAD, EYES, EARS, NOSE, THROAT: Unremarkable. LUNGS: Clear, but she had a harsh cough heard. HEART: Regular rhythm. ABDOMEN: Soft without organomegaly. EXTREMITIES: Showed trace edema. COURSE IN THE HOSPITAL: The patient was started on empiric antibiotics. She was penicillin allergic. She had high fever on admission and became afebrile after antibiotics. Chest x-ray showed prominent lung markings, which may represent chronic bronchovesicular markings versus pulmonary vascular congestion versus infectious inflammatory process. Left basilar opacity may represent atelectasis versus pneumonia. Clinically, she improved with the above treatment. Her diabetes remained stable. She had some mild skin irritation after IV Levaquin, which is likely not allergic reaction, but due to small caliber vein and IV, she was switched to doxycycline. With the above treatment, she was stable. On the day of discharge, her lungs were clear. Heart, regular rhythm. Extremities, no edema. She felt better and was discharged home in stable condition. FINAL DIAGNOSES: 1. Community-acquired pneumonia. 2. Asthma. 3. Adult onset diabetes. 4. History of gait disorder, secondary to lumbar disc. 5. History of chronic pain syndrome. 6. History of obesity. 7. Hypothyroidism, on replacement. 8. Hypertension. DISCHARGE DISPOSITION: On a prior to admission medications and I gave the patient also prescriptions for doxycycline 100 mg b.i.d., #24, nebulizer to be used at home with albuterol 2.5 mg in 3 mL NS, #125. FOLLOWUP: Follow up with her primary care physician. Ismael Gayle M.D. DR: REYES JOB#: [id number] CC:
--- NOTE | 2019-01-30 20:06 | NUR ---
NURSE NOTES: Patient dischaged. All belongins with patient. Discharge paperwork given. New prescriptions given and explained all side effects. Patient walked down via wheelchair to private vehicle.
== END 2019-01-30 18:48 | disposition home or self-care (01) | DRG 139 ==
LOC: EMR 10:44 → 2E 12:50 → EDBEDREQ 14:15
DX: J18.9 Pneumonia, unspecified organism (principal); E66.01 Morbid (severe) obesity due to excess calories; Z68.41 Body mass index [BMI] 40.0-44.9, adult; I11.0 Hypertensive heart disease with heart failure; I50.9 Heart failure, unspecified; J45.909 Unspecified asthma, uncomplicated; E03.9 Hypothyroidism, unspecified; Z88.0 Allergy status to penicillin; Z91.041 Radiographic dye allergy status; Z85.41 Personal history of malignant neoplasm of cervix uteri; E11.9 Type 2 diabetes mellitus without complications; K21.9 Gastro-esophageal reflux disease without esophagitis; M51.36 Other intervertebral disc degeneration, lumbar region; G89.4 Chronic pain syndrome; E66.9 Obesity, unspecified; R26.9 Unspecified abnormalities of gait and mobility
CPT/HCPCS: 36415; 71045; 80053; 81003; 82550; 82553; 82962; 83036; 83605; 83880; 84484; 85007; 85025; 86710; 87040; 87070; 87205; 93005; 94640; 96361; 96365; 96366; 96375; 99285; J1815; J3490; J7030; J7620